=== PATIENT | male | born 1935 | race Caucasian/White ===

== ENCOUNTER → 2017-08-06 | Outpatient (CLI) | payer MEDICARE ==
[~2017-08-06] MED LIST: ACET-3017 PO; ASPI-1471 PO; BENZ200C38 PO; BUPR-126 PO; BUPR-133 PO; CALC-649 PO; CALC-852 PO; CAN32 PO; CETI-176 PO; CHOL10005 PO; CIP500 PO; CIPR-344 PO; CITA-156 PO; CLIN300C99 PO; CLOP75TA43 PO; DESV50TA9 PO; DIA5 PO; DIPH-740 PO; DOCU-416 PO; ENOX100D5 SQ; FINA5TAB67 PO; HYDR12.558 PO; HYDR2TAB41 PO; IBUP-1671 PO; IBUP-56 PO; IBUP100T51 PO; IBUP200C71 PO; LISI-347 PO; LISI-353 PO; LISI-362 PO; LISI-368 PO; LUTE20CA11 PO; MAGN355O8 PO; METR-1 PO; MOMR ENA; MV-M1TAB19 PO; NASOCORT; OMEP-218 PO; OXYC-856 PO; OXYC-865 PO; OXYGENHOME INH; PER PO; PRAV20TA66 PO; PSYL0.5241 PO; QUET25TA30 PO; QUET50TA PO; RIVA15TA PO; SIMV-44 PO; TAMS0.4C70 PO; TRAM-420 PO; TRAZ-133 PO; VENL150C3 PO; VIBRYD PO; VILA40TA PO; VIT-7 PO; WARF-1 PO; [UNRECOGNIZED DRUG - REMARK]
[2017-08-06 11:15] LABS: LDL CHOLESTEROL 84 mg/dl
== END ==
LOC: LAB 10:49
PROVIDERS: ATTEND Internal Medicine
DX: I10 Essential (primary) hypertension (principal); E78.5 Hyperlipidemia, unspecified; M10.9 Gout, unspecified
CPT/HCPCS: 36415; 82040; 82247; 82310; 82374; 82435; 82465; 82565; 82947; 83718; 84075; 84132; 84155; 84295; 84450; 84460; 84478; 84520; 84550

== ENCOUNTER → 2017-12-09 | Outpatient (CLI) | payer MEDICARE ==
[~2017-12-09] MED LIST changes: +NYST15CR32 TP
--- NOTE | 2017-12-09 09:19 | EKG ---
FACILITY: [facility] - [place] PATIENT NAME: DEENA ALFONSO : [id number] MR: [id number] V: [id number] EXAM DATE: ORDERING PHYSICIAN: STEVEN LEE TECHNOLOGIST: ASHLEE Test Reason : SOB Blood Pressure : / mmHG Vent. Rate : 076 BPM Atrial Rate : 076 BPM P-R Int : 186 ms QRS Dur : 160 ms QT Int : 416 ms P-R-T Axes : 064 -46 078 degrees QTc Int : 468 ms Normal sinus rhythm Left axis deviation Nonspecific intraventricular block T wave abnormality, consider anterior ischemia Abnormal ECG No previous ECGs available Referred By: Confirmed By:
--- NOTE | 2017-12-09 10:37 | RADIOLOGY IMAGING REPORT ---
FACILITY: [facility] - [place] PATIENT NAME: Shalom Anders : 1935 MR: [id number] V: [id number] EXAM DATE: ORDERING PHYSICIAN: STEVEN LEE TECHNOLOGIST: Location: [facility] - [place] Patient: Shalom Anders : 1935 Visit/Account:[id number] Date of Sevice: 12/09/2017 Exam type: CHEST PA AND LAT History: shortness of breath, increased O2 needs, previous smoker Comparison: June 26, 2010. Findings: There is mild flattening of hemidiaphragms which can be seen with hyperinflation. There is no eviden ce of focal infiltrates, pleural effusions or pulmonary edema. No evidence of a pneumothorax or pneu momediastinum. The cardiac silhouette is normal in size. Hiatal hernia projects in the retrocardiac space. There are moderate spondylotic changes of the thoracic spine IMPRESSION: 1. Hyperinflation of the lung miller although no evidence of acute pulmonary consolidation Report Dictated By: Kristie Soni MD at 12/09/2017 10:31 AM Report E-Signed By: Kristie Soni MD at 12/09/2017 10:34 AM WSN:[email or web address]
== END ==
LOC: RESP 08:52
PROVIDERS: ATTEND Internal Medicine
DX: R06.02 Shortness of breath (principal); Z87.891 Personal history of nicotine dependence
CPT/HCPCS: 71046

== ENCOUNTER → 2017-12-22 | Outpatient (CLI) | payer MEDICARE | LOC: RESP 01:24 | PROVIDERS: ATTEND Internal Medicine | DX: G47.33 Obstructive sleep apnea (adult) (pediatric) (principal); R09.02 Hypoxemia | CPT/HCPCS: 94060; 94726; 94729 ==

== ENCOUNTER → 2018-03-10 | Outpatient (CLI) | payer MEDICARE ==
[~2018-03-10] MED LIST changes: +IBUP-136 PO; -IBUP200C71 PO
== END ==
LOC: US 01:13
PROVIDERS: ATTEND Internal Medicine
DX: I51.7 Cardiomegaly (principal)
CPT/HCPCS: 93306

== ENCOUNTER → 2018-03-30 | Outpatient (CLI) | payer MEDICARE | LOC: LAB 17:23 | PROVIDERS: ATTEND Urology | DX: R97.20 Elevated prostate specific antigen [PSA] (principal) | CPT/HCPCS: 36415; 84153 ==

== ENCOUNTER → 2018-10-05 | Outpatient (CLI) | payer MEDICARE ==
[~2018-10-05] MED LIST changes: +FLUT16SP19 NS; +PANT40TA65 PO
[2018-10-05 10:16] LABS: PLATELET COUNT, AUTOMATED 174 K/uL (150-450)
== END ==
LOC: LAB 09:48
PROVIDERS: ATTEND Internal Medicine
DX: E78.5 Hyperlipidemia, unspecified (principal); R09.02 Hypoxemia; F31.9 Bipolar disorder, unspecified; I10 Essential (primary) hypertension; M10.9 Gout, unspecified
CPT/HCPCS: 36415; 81001; 82040; 82247; 82310; 82374; 82435; 82465; 82565; 82947; 83718; 84075; 84132; 84155; 84295; 84443; 84450; 84460; 84478; 84520; 84550; 85025

== ENCOUNTER → 2018-11-13 | Outpatient (CLI) | payer MEDICARE ==
--- NOTE | 2018-11-13 08:45 | RADIOLOGY IMAGING REPORT ---
FACILITY: [facility] - [place], [place] PATIENT NAME: Shalom Anders : 1935 MR: [id number] V: [id number] EXAM DATE: ORDERING PHYSICIAN: STEVEN LEE TECHNOLOGIST: Location: [facility] Patient: Shalom Anders : 1935 Visit/Account:[id number] Date of Sevice: 11/13/2018 Ultrasound abdomen limited: History: Elevated LFTs COMPARISON STUDIES: Correlation made with abdominal CT 08/05/2014 FINDINGS: Gallbladder: There is no cholelithiasis. There are some low level echoes within the gallbladder cons istent with sludge. Gallbladder wall thickness is normal. No pericholecystic fluid. Per the techno logist notes, Young sign was positive. Liver: Echogenicity is mildly and diffusely increased. There is no mass or intrahepatic ductal dilat ation. Portal vein is patent. Surface of the liver is smooth Common duct: normal 3 mm. Pancreas: Normal Right kidney: 10.8 x 4.4 x 4.5 cm. Cortical thickness and echogenicity is normal. Upper abdominal aorta and IVC: Patent Ascites: none IMPRESSION: 1. Mild diffuse increased echogenicity of the liver which may be indicative of hepatic steatosis or other diffuse hepatocellular disease. There is no focal mass or intrahepatic ductal dilatation. 2. Probable sludge within the gallbladder. Per the technologist notes, positive sonographic Young sign was present, correlate with any other symptoms of cholecystitis. Report Dictated By: Reva Chopra MD at 11/13/2018 8:33 AM Report E-Signed By: Reva Chopra MD at 11/13/2018 8:42 AM WSN:[email or web address]
== END ==
LOC: US 01:01
PROVIDERS: ATTEND Internal Medicine
DX: R94.5 Abnormal results of liver function studies (principal)
CPT/HCPCS: 76705